=== PATIENT | female | born 1940 | race Caucasian/White ===

== ENCOUNTER → 2016-10-02 | Outpatient (CLI) | payer OTHER | LOC: EDSTATUS 11:02 → FIMAGING 14:53 | PROVIDERS: ATTEND Family Medicine | DX: R05 Cough (principal) ==

== ENCOUNTER 2018-01-06 11:00 | Day surgery (SDC) | payer OTHER ==
[2018-01-06] MEDS ORDERED: ceFAZolin 2 GM/DEXTROSE 100 ML IV ONE (11:16)
[2018-01-06] MEDS ORDERED: LR 1,000 ML IV ONE (11:21)
[2018-01-06] MEDS ORDERED: BUPIVACAINE 0.5% 30 ML SDV ONE (12:11)
[2018-01-06] MEDS ORDERED: POLYMYXIN B SULFATE 500,000 UNIT/10 ML SYR IRR ONE (12:11)
[2018-01-06] MEDS ORDERED: BACITRACIN 50,000 UNITS/10 ML SYR IRR ONE (12:11)
[2018-01-06] MEDS ORDERED: MIDAZOLAM 2 MG/2 ML VIAL ONE (12:32)
[2018-01-06] MEDS ORDERED: PROPOFOL/EMULSION 500 MG/50 ML BOTTLE IV ONE (12:32)
--- NOTE | 2018-01-06 12:34 | PDHPUP ---
History & Physical Update H&P update statement: This history and physical update is based on an assessment of the patient which was completed after admission or registration (within 24 hours), but prior to the surgery/procedure. H&P update: H&P reviewed & patient examined, no change in patient's condition since H&P completed
[2018-01-06] MEDS ORDERED: ONDANSETRON 4 MG/2 ML VIAL ONE (12:38)
[2018-01-06] MEDS ORDERED: METOCLOPRAMIDE 10 MG/2 ML VIAL ONE (12:38)
[2018-01-06] MEDS ORDERED: DEXAMETHASONE 4 MG/ML VIAL ONE (12:38)
--- NOTE | 2018-01-06 12:43 | PDANEPAE ---
ANE Past Medical History - Cardiovascular History Hx Hypertension: No Hx Arrhythmias: No Hx Chest Pain: No Hx Coronary Artery / Peripheral Vascular Disease: No Hx CHF / Valvular Disease: No Hx Palpitations: No - Pulmonary History Hx COPD: No Hx Asthma/Reactive Airway Disease: Yes Hx Recent Upper Respiratory Infection: No Hx Oxygen in Use at Home: No Hx Sleep Apnea: No Sleep Apnea Screening Result - Last Documented: Negative Pulmonary History Comment: bronchitis - Neurologic History Hx Cerebrovascular Accident: No Hx Seizures: No Hx Dementia: No - Endocrine History Hx Diabetes: No - Renal History Hx Renal Disorders: No - Liver History Hx Hepatic Disorders: No - Neurological & Psychiatric Hx Hx Neurological and Psychiatric Disorders: No - Cancer History Hx Cancer: No - Congenital Disorder History Hx Congenital Disorders: No - GI History Hx Gastrointestinal Disorders: No - Other Health History Other Health History: braces - Chronic Pain History Chronic Pain: Yes (knee pain) - Surgical History Prior Surgeries: knee scope ANE Review of Systems Review of Systems: - Exercise capacity METS (RN): 5 METS ANE Patient History - Allergies Allergies/Adverse Reactions: ciprofloxacin Allergy (Verified 12/12/17 16:13) Other-Enter Comments codeine Allergy (Verified 12/12/17 16:13) Vomiting levofloxacin Allergy (Verified 12/12/17 16:13) Other-Enter Comments - Home Medications Home Medications: Reena Allergy 12/12/17 [Last Taken 12/16/17] CALCIUM 600 + VIT D TABLET 12/12/17 [Last Taken 12/29/17] Multivitamins 12/12/17 [Last Taken 12/29/17] Proair Hfa 12/12/17 [Last Taken 12/16/17] Qvar 12/12/17 [Last Taken 12/16/17] Serevent Diskus (*) 12/12/17 [Last Taken 12/16/17] - NPO status NPO Since - Liquids (Date): 01/06/18 NPO Since - Liquids (Time): 09:30 NPO Since - Solids (Date): 01/05/17 NPO Since - Solids (Time): 18:00 - Smoking Hx Smoking Status: Never smoked - Family Anes Hx Family Hx Anesthesia Complications: none ANE Labs/Vital Signs - Vital Signs Blood Pressure: 131/75 Heart Rate: 72 Respiratory Rate: 16 O2 Sat (%): 95 Height: 161.29 cm Weight: 59.874 kg ANE Physical Exam - Airway Mallampati Score: Class 2 - ASA Status ASA Status: II ANE Anesthesia Plan Total IV Anesthesia: Yes
[2018-01-06] MEDS ORDERED: PROMETHAZINE HCL 25 MG/ML INJ IVP PRN (14:27)
[2018-01-06] MEDS ORDERED: NALOXONE HCL 0.4 MG/ML INJ IVP PRN (14:27)
[2018-01-06] MEDS ORDERED: LR 500 ML IV PRN (14:27)
[2018-01-06] MEDS ORDERED: fentaNYL 100 MCG/2 ML INJ IVP PRN (14:27)
[2018-01-06] MEDS ORDERED: ONDANSETRON 4 MG/2 ML VIAL IVP PRN (14:28)
[2018-01-06] MEDS ORDERED: ONDANSETRON DISINTEGRATING 4 MG TAB PO PRN (14:28)
[2018-01-06] MEDS ORDERED: OXYCODONE/APAP 5/325 TAB PO PRN (14:28)
--- NOTE | 2018-01-06 14:28 | POSTANESTH ---
Post Anesthetic Evaluation Cardiovascular Status: Normal, Stable Respiratory Status: Normal, Stable Level of Consciousness/Mental Status: Can Participate in Eval Pain Control: Adequate, Prn Tx Ordered Nausea/Vomiting Control: Adequate, Prn Tx Ordered Complications Possibly Related to Anesthesia: None Noted
--- NOTE | 2018-01-06 15:26 | GOP ---
[f rep st] OPERATIVE REPORT DATE OF ADMISSION: 01/06/2018 TRANSMITTER TESTER: None. PREOPERATIVE DIAGNOSES: 1. Hallux valgus, right foot. 2. Metatarsus primus varus, right foot. 3. Congenital anomaly of toe, right foot. 4. Metatarsalgia, right foot. 5. Closed dislocation 2nd metatarsophalangeal joint, right foot. 6. Contracture 2nd digit, right foot. POSTOPERATIVE DIAGNOSES: 1. Hallux valgus, right foot. 2. Metatarsus primus varus, right foot. 3. Congenital anomaly of toe, right foot. 4. Metatarsalgia, right foot. 5. Closed dislocation 2nd metatarsophalangeal joint, right foot. 6. Contracture 2nd digit, right foot. PROCEDURE: 1. Bunionectomy, right foot. 2. First metatarsal osteotomy with internal fixation and bone graft, right foot. 3. Osteotomy 1st proximal phalanx, right foot. 4. Second metatarsal osteotomy, right foot. 5. Repair dislocation 2nd metatarsophalangeal joint, right foot. 6. Extensor tendon lengthening 2nd digit, right foot. 7. Repair of flexor tendon, right foot. 8. Transfer flexor tendon, right foot. 9. Hammer toe fusion 2nd digit, right foot. ANESTHESIA: MAC with local 25 mL 0.5% Marcaine plain. ESTIMATED BLOOD LOSS: Zero. MATERIALS: 3.5 headless Arthrex screw x3, 2.0 snap off screws x2, Arthrex CPR kit x1, 2.0, 3.0, and 5.0 Vicryl. INJECTABLES: None. CONDITION: Stable. FINDINGS: Gross findings consistent with diagnoses. PROCEDURE IN DETAIL: After identification, the patient was brought into the operating room and placed on the operating room table in the supine position. Following IV sedation, local anesthesia was obtained on the right foot utilizing a total of 25 mL 0.5% Marcaine plain. The foot was then scrubbed, prepped and draped in the usual aseptic manner. A pneumatic ankle tourniquet was placed around the patient's right ankle with ample padding. Esmarch bandage was utilized to exsanguinate the patient's right lower extremity. The pneumatic ankle tourniquet was then inflated. Attention was first directed to the medial aspect of the patient's right foot where a 5 cm linear longitudinal incision was made at the medial aspect of the 1st metatarsophalangeal joint. This incision was deepened through the subcutaneous tissue with care being taken to retract all vital and neural and vascular structures. Bleeders were ligated and cauterized as necessary. Incision was deepened to the level of the joint where a lenticular capsulorrhaphy was performed at the medial aspect of the 1st metatarsophalangeal joint. This lenticular piece of capsule was excised in total and passed from the operative field. Capsular structures were connected dorsally and plantarly; thus, exposing the 1st metatarsal at the operative site. A McGlamry elevator was then inserted from medial to lateral between the 1st metatarsal head and the sesamoid apparatus to serve as a release of adhesions and a lateral ligamentous soft tissue release of the metatarsophalangeal joint. Upon completion of this release, the hallux is easily more translatable into an anatomic and corrected position on the 1st metatarsal. Attention was then directed to the 1st metatarsal where a through- and-through scarf Z-shaped osteotomy was made in the head, neck, and shaft of the 1st metatarsal bone. Upon completion of this [id number] osteotomy from medial to lateral, the capital fragment of the 1st metatarsal was translated into a more lateral and corrected position on the 1st metatarsal. Following temporary fixation, 2 x 3.5 headless Arthrex screws were driven obliquely across this osteotomy site to serve as stable fixation. Redundant medial bone shelf was excised, remodeled, replaced into the osteotomy site to serve as a bone graft. All rough edges were then smoothed with a bone bur. Position was noted to be ideal, excellent and anatomic at this time. Fixation was noted to be excellent. It is noted that at this time, the hallux is still in an adducted position so a decision to make a 1st proximal phalanx osteotomy was made. A medially based wedge osteotomy was performed at the base of the 1st proximal phalanx leaving the lateral cortex intact. This base wedge of bone was removed and the osteotomy site was closed translating the hallux into a more anatomic and correct position on the 1st metatarsal bone. A Nitinol staple was inserted over the osteotomy to serve as stable fixation. Fixation was noted to be excellent. Position was noted to be excellent at this time. Attention was then directed to the 2nd metatarsophalangeal joint where a 4 cm linear longitudinal incision was made over the dorsal aspect of the 2nd metatarsophalangeal joint. This incision was deepened through the subcutaneous tissue with care being taken to retract all vital and neural and vascular structures. Bleeders were ligated and cauterized as necessary. A linear capsulotomy was performed between the tendons of the extensor digitorum longus and the extensor digitorum brevis. A Z-lengthening of the extensor digitorum brevis was performed and the tendon was re-approximated utilizing 2-0 Vicryl. Capsular structures were reflected medially and laterally. Thus, exposing the 1st metatarsophalangeal joint of the operative site. An oblique Kamari osteotomy was made from dorsal distal to plantar proximal in the head, neck and shaft of the 2nd metatarsal bone. This was retracted proximally; thus, exposing the plantar aspect of the 2nd metatarsophalangeal joint at the operative site and temporary fixated out of the way. Attention was then directed to the plantar soft tissue structures where it was noted that a greater than 50% tear in the plantar plate structure at the 2nd metatarsophalangeal joint is present. The rupture of this ligament was completed sharply; thus, exposing the flexor tendon apparatus. The flexor tendon apparatus was noted to be damaged with a partial frayed tearing of the flexor digitorum brevis. This was directly repaired using 2-0 Vicryl. Next, the plantar plate structure as well as a flexor tendon apparatus was gathered with a suture gathering instrument. Once these structures were gathered, they were passed from distal to proximal through 2 crossing drill holes in the neck of the base of the 2nd proximal phalanx. The 2nd metatarsal was brought back out to length and fixated with 2 x 2.0 snap-off screws driven obliquely across the osteotomy site to serve as stable fixation. Fixation was noted to be excellent and position was noted to be excellent, approximately 3 mm shortened. The sutures that have been passed through the plantar plate, flexor tendon apparatus, were then passed through the crossing drill holes in the proximal phalanx and tied upon themselves with the metatarsophalangeal joint in a plantar flexed position. This serves as a transfer of both the plantar plate and the flexor tendons directly to the base of the proximal phalanx. These sutures were tied upon themselves to serve as stable fixation. The metatarsophalangeal joint was noted to be congruent at this time. The incisions were then flushed with normal sterile saline solution. Capsular ligamentous structures were re-approximated using 2-0 Vicryl. Subcutaneous tissues were re-approximated with 3-0 Vicryl and skin re-approximated using 5-0 Vicryl in running subcuticular suture technique. The incision sites were then dressed with Steri-Strips, Adaptic, 4 x 4 gauze, Webril, Charles bandage. The patient was transported to the postoperative recovery area with vital signs stable and neurovascular status intact to the right foot. The patient tolerated the procedure and anesthesia well. /[id number]/MODL MTDD
[2018-01-06 15:48] VITALS: BP 114/60
== END 2018-01-06 15:49 | disposition home or self-care (01) ==
LOC: FSGY 11:00
PROVIDERS: ATTEND Podiatrist
PROC: 0QSN0ZZ Reposition Right Metatarsal, Open Approach (ICD-10-PCS; principal; 2018-01-06 12:30)
PROC: 0SGP04Z Fusion of Right Toe Phalangeal Joint with Internal Fixation Device, Open Approach (ICD-10-PCS; principal; 2018-01-06 12:30)
PROC: 0SSM04Z Reposition Right Metatarsal-Phalangeal Joint with Internal Fixation Device, Open Approach (ICD-10-PCS; principal; 2018-01-06 12:30)
PROC: 0Q8Q0ZZ Division of Right Toe Phalanx, Open Approach (ICD-10-PCS; principal; 2018-01-06 12:30)
PROC: 0QBN0ZZ Excision of Right Metatarsal, Open Approach (ICD-10-PCS; principal; 2018-01-06 12:30)
DX: M20.11 Hallux valgus (acquired), right foot (principal); M77.41 Metatarsalgia, right foot; S93.124A Dislocation of metatarsophalangeal joint of right lesser toe(s), initial encounter; M24.574 Contracture, right foot
CPT/HCPCS: C1713; J0690; J1100; J2250; J2405; J2704; J2765

== ENCOUNTER → 2018-08-12 | Outpatient (CLI) | payer OTHER | LOC: BMCIMAGING 08-06 11:01 | PROVIDERS: ATTEND Family Medicine | DX: M81.0 Age-related osteoporosis without current pathological fracture (principal) ==